=== PATIENT | female | born 1990 | race African-American/Black ===

== ENCOUNTER 2017-04-23 14:10 | Emergency (ER) | payer OTHER ==
[~2017-04-23] VITALS: Ht 175.3 cm; Wt 65.8 kg
[2017-04-23] MEDS ORDERED: [UNRECOGNIZED DRUG - REMARK] (14:23)
--- NOTE | 2017-04-23 15:10 | NUR ---
Pt c/o nausea vomited x 10 since this AM, was out drinking last night, denies ABD pain. PT also c/o Frontal PEÑA and facial pain with photophobia, 01/16. Pt denies CP, SOB, dizziness, no other complaints, no distress noted. Started IV 20g, left AC, sandor blood and took to lab.
[2017-04-23 15:13] LABS: BILIRUBIN,DIRECT 0.1 mg/dL (0.0-0.2); BILIRUBIN,TOTAL 0.5 mg/dL (0.2-1.0); CREATININE 0.7 mg/dL (0.6-1.3); POTASSIUM 4.5 mmol/L (3.5-5.1)
[2017-04-23 15:36] LABS: BASOPHILS % (AUTO) 0.2 % (0.0-2.0); EOSINOPHILS % (AUTO) 0.2 % (0.0-7.0); HEMATOCRIT 41.7 % (37-47); HEMOGLOBIN 12.6 G/DL (12.0-16.0); LYMPHOCYTES # (AUTO) 0.9 K/UL (0.8-4.8); LYMPHOCYTES % (AUTO) 12.1 % (20.5-51.5); MEAN CORPUSCULAR HEMOGLOBIN 21.5 UUG (27.0-31.0); MEAN CORPUSCULAR HGB CONC 30 g/dL (32.0-37.0); MEAN CORPUSCULAR VOLUME 71.3 FL (81.0-99.0); MONOCYTES # (AUTO) 0.4 K/UL (0.1-1.30); MONOCYTES % (AUTO) 5.7 % (0.0-11.0); NEUTROPHILS % (AUTO) 81.8 % (38.5-71.5); PLATELET COUNT (AUTO) 245 K/UL (150-450); RED BLOOD CELL COUNT(AUTO) 5.86 MIL/UL (4.2-5.4); WHITE BLOOD COUNT (AUTO) 7.3 K/UL (4.0-11.2)
[2017-04-23 15:43] LABS: ETHANOL < 3 MG/DL (0-0)
--- NOTE | 2017-04-23 16:17 | NUR ---
Pt states she is nausea free and pain free currently.
--- NOTE | 2017-04-23 16:32 | NUR ---
Note jane in ED - 04/23/17 at 1640 by JANNA Pt back from CT
--- NOTE | 2017-04-23 16:32 | NUR ---
Wendie lara in ED - 04/23/17 at 1640 by JANNA Critical Lab Blood alcohol = 0.44
--- NOTE | 2017-04-23 16:52 | NUR ---
Removed IV intact, site okay, bandaged. Gave pt RX and d/c instructions, verbalized understanding.
== END 2017-04-23 16:56 | disposition home or self-care (01) ==
LOC: ER 14:10
DX: R11.10 Vomiting, unspecified (principal); E10.9 Type 1 diabetes mellitus without complications; Z79.4 Long term (current) use of insulin
CPT/HCPCS: 36415; 83690; 84703; 85025; A4663; G0480; J1200; J1885; J2765; J7030